=== PATIENT | male | born 1970 | race Caucasian/White ===

== ENCOUNTER 2016-07-25 18:10 | Emergency (ER) | payer OTHER ==
[~2016-07-25] VITALS: Ht 177.8 cm; Wt 101.0 kg
[2016-07-25 19:44] VITALS: Ht 177.8 cm; Wt 101.0 kg
--- NOTE | 2016-07-25 21:31 | ERD ---
ER Documentation Chief Complaint Date/Time DATE: 07/25/16 TIME: 21:28 Chief Complaint right eye pain w/ blurry vision oon and off, headache HPI The patient is a 45-year-old male here with right eye itching, foreign body sensation of sand, photophobia, blurred vision, and clear drainage since yesterday. He states that his eye was red yesterday, but has not been read today. He denies halos, flashers, floaters, or curtain coming down over his vision. He states that he has seasonal allergies and had a sore throat 2 days ago. He denied any eye injury, foreign body in his eye, metal working, or woodworking. ROS All systems reviewed and are negative except as per history of present illness. Medications Home Meds Active Scripts Mineral Oil/Petrolatum,White (ARTIFICIAL TEARS EYE OINT) 3.5 Gm Oint...g., 1 APPLIC RIGHT EYE NEEDED Y for DRY EYES, #1 EA Prov:ANTHONY GARCIA, REHAB LIAISON 07/25/16 Olopatadine* (Patanol* Ophth) 0.1% - 5 Ml Drops, 1 DROP RIGHT EYE BID, #1 EA Prov:ANTHONY GARCIA, REHAB LIAISON 07/25/16 Allergies Allergies: Coded Allergies: No Known Allergy (Unverified , 07/25/16) PMhx/Soc Medical and Surgical Hx: pt denies Medical Hx, pt denies Surgical Hx History of Surgery: Yes (Appendectomy. L tib fib ORIF) Anesthesia Reaction: No Hx Neurological Disorder: No Hx Respiratory Disorders: No Hx Cardiac Disorders: No Hx Psychiatric Problems: No Hx Miscellaneous Medical Probl: No Hx Alcohol Use: Yes (Occasional) Hx Substance Use: No Hx Tobacco Use: Yes Smoking Status: Current every day smoker Physical Exam Vitals Vital Signs Date Time Temp Pulse Resp B/P Pulse Ox O2 Delivery O2 Flow Rate FiO2 07/25/16 19:44 97.3 83 20 124/58 98 Physical Exam INITIAL VITAL SIGNS: Reviewed by me GENERAL: Alert. Well developed and well nourished. No acute distress. Nontoxic appearing. HEAD: Head is normocephalic. Atraumatic. EYES: EOMI and non-painful. PERRL. No scleral icterus. +Trace conjunctival injection. No foreign body appreciated. No clear or purulent drainage. OD 20/20 , OS 20/20, OU 20/20. ENT: External ears, nose, and mouth normal. Nasal passages patent. Throat is clear and without erythema or purulence. Tonsils +2 without erythema or purulence. Moist mucous membranes. NECK: Supple. Full range of motion. No meningismus. Trachea midline. RESPIRATORY: No tachypnea. Clear to auscultation bilaterally. No wheezing, rales , or rhonchi. CV: Regular rate and rhythm. No murmurs, rubs, or gallops ABDOMEN: Soft, non-distended, non-tender. No guarding. Bowel sounds normal in all quadrants. BACK: No CVA tenderness. Full ROM. EXTREMITIES: No obvious deformity. No clubbing or cyanosis. No edema. SKIN: Warm and dry. No diaphoresis. No obvious rashes or lesions. NEUROLOGIC: Alert and oriented x 3. Appropriate. Face is symmetric. Speech is normal. Moves all extremities equally. Procedures/MDM Nursing Notes Reviewed Previous Medical Records requested via [employer]. EMERGENCY DEPARTMENT COURSE / MEDICAL DECISION MAKING: The patient comes to the ED secondary to right eye itching, foreign body sensation of sand, photophobia, blurred vision, and clear drainage since yesterday. Differential diagnosis upon initial evaluation includes but is not limited to: Allergic conjunctivitis, viral conjunctivitis, bacterial conjunctivitis, foreign body, glaucoma, hyphema, iritis, uveitis, and others. The case was discussed with supervising physician Dr. Zhang. The patient's history of present illness and physical exam findings including the visual acuity were discussed with Dr. Zhang. As the patient did not have any eye drainage of any kind, did not report any purulent drainage from the eye, had only trace conjunctival injection, had normal visual acuity 20/20, extraocular movements were intact and nonpainful, pupils were equal round and reactive to light, no history of a foreign body in his eye or any other eye injury, and no foreign body visualized in the eye. As such, I have low suspicion at this time for bacterial conjunctivitis, foreign body, corneal abrasion, glaucoma, hyphema , iritis, uveitis, or any other serious cause of eye irritation. It was agreed with Dr.. Zhang that this time there are no threats to the patient's vision and that he is an appropriate candidate for outpatient management and follow-up at this time. He will be given strict return precautions. Patient states that he had a sore throat 2 days ago and he also states that he has "bad "seasonal allergies. As he only has symptoms in his right eye, I have a higher suspicion for viral conjunctivitis, however allergic conjunctivitis cannot be entirely ruled out. Vital impression: Viral conjunctivitis versus allergic conjunctivitis Based on patient's history of present illness and physical examination the decision was made to discharge. There is no evidence of life threatening injuries or illnesses at this time. On re-examination, patient resting in no distress, stable vital signs, reports feeling better and safe for discharge with outpatient follow up with PMD in 1-2 days. Patient given return precautions. He verbalized understanding and agreed to return precautions. He agrees with the plan of care. Prescriptions Artificial tears Patanol drops Departure Diagnosis: Primary Impression: Viral conjunctivitis Condition: Stable ANTHONY GARCIA NP Jul 25, 2016 21:31
[2016-07-25] MEDS ORDERED: OLOP5DRO12 RIGHT EYE (21:38)
[2016-07-25] MEDS ORDERED: MINE3.5O30 RIGHT EYE (21:40)
== END 2016-07-25 22:17 | disposition home or self-care (01) ==
LOC: FTE 18:10
DX: H10.9 Unspecified conjunctivitis (principal); F17.210 Nicotine dependence, cigarettes, uncomplicated
CPT/HCPCS: 99283

== ENCOUNTER 2019-02-23 10:27 | Emergency (ER) | payer OTHER ==
[~2019-02-23] VITALS: Ht 180.3 cm; Wt 100.0 kg
[~2019-02-23 10:27] MED LIST: ACET500C5 PO; CIPR500T4 PO; LACT1CAP57 PO; MINE3.5O30 RIGHT EYE; OLOP5DRO12 RIGHT EYE
[2019-02-23 11:31] VITALS: BP 142/76; PULSE 84; RESP 18; Ht 180.3 cm; Wt 100.0 kg
== END 2019-02-23 13:43 | disposition home or self-care (01) ==
LOC: FTE 10:27
DX: N41.0 Acute prostatitis (principal); F17.210 Nicotine dependence, cigarettes, uncomplicated
CPT/HCPCS: 81001; 87591; Z7502; 99283